=== PATIENT | female | born 1995 | race African-American/Black ===

== ENCOUNTER 2017-03-20 20:51 | Emergency (ER) | payer MEDICAID, OTHER ==
[~2017-03-20] VITALS: Ht 162.6 cm; Wt 54.4 kg
[2017-03-20] MEDS ORDERED: IRON159 MG PO (21:12)
[2017-03-20 21:15] VITALS: BP 115/68
[2017-03-20] MEDS ORDERED: IBUPROFEN600 MG ORAL (22:31)
--- NOTE | 2017-03-20 22:32 | Emergency Room Report ---
History of Present Illness General Chief Complaint: Flu Like Symptoms Source: Patient Present Illness HPI This is a 21-year-old female with no past medical history. She presents with chief complaint of sore throat headache. No nausea no vomiting. No fever or chills. Onset yesterday. Has not anything for it. Worse with swallowing. Allergies: Coded Allergies: No Known Allergies (Unverified , 03/20/17) Patient History Past Medical History: none Past Surgical History: none Pertinent Family History: none Social History: Denies: smoking Last Menstrual Period: 03/15/17 Now: No Immunizations: other Reviewed Nursing Documentation: PMH: Agreed, PSxH: Agreed Review of Systems Eye: Denies: eye pain, blurred vision ENT: Reports: throat pain, Denies: ear pain, nose congestion, throat swelling Respiratory: Denies: cough, shortness of breath Cardiovascular: Denies: chest pain, palpitations Gastrointestinal: Denies: abdominal pain, diarrhea, nausea, vomiting Musculoskeletal: Denies: back pain, joint pain Skin: Denies: rash Neurological: Denies: headache, numbness Endocrine: Denies: increased thirst, increased urine Hematologic/Lymphatic: Denies: easy bruising All Other Systems: negative except mentioned in HPI Physical Exam Vital Signs Date Time Temp Pulse Resp B/P (MAP) Pulse Ox O2 Delivery O2 Flow Rate FiO2 03/20/17 21:08 98.6 98 16 94/53 95 Room Air vitals normal Sp02 EP Interpretation: reviewed, normal General Appearance: well appearing, no apparent distress, alert Head: normocephalic, atraumatic Eyes: bilateral eye PERRL, bilateral eye EOMI ENT: hearing grossly normal, pharyngeal erythema Neck: full range of motion, supple, no meningismus Respiratory: chest non-tender, lungs clear, normal breath sounds Cardiovascular #1: regular rate, rhythm, no murmur Gastrointestinal: normal bowel sounds, non tender, no mass, no organomegaly, no bruit, non-distended Musculoskeletal: back normal, gait/station normal, normal range of motion Psychiatric: mood/affect normal Skin: warm/dry Medical Decision Making Diagnostic Impression: Primary Impression: Pharyngitis, acute Qualified Codes: J02.9 - Acute pharyngitis, unspecified ER Course Patient with a viral pharyngitis. Looks well. No evidence of strep throat. No evidence of peritonsillar abscess, retropharyngeal abscess or Moses angina. Will discharge home with symptom in the treatment. Last Vital Signs Date Time Temp Pulse Resp B/P (MAP) Pulse Ox O2 Delivery O2 Flow Rate FiO2 03/20/17 21:08 98.6 98 16 94/53 95 Room Air Status: unchanged Disposition: HOME, SELF-CARE Condition: Stable Scripts Ibuprofen* (MOTRIN*) 600 Mg Tablet 600 MG ORAL THREE TIMES A DAY, #30 TAB 0 Refills Prov: ZANE SHAW M.D. 03/20/17 Additional Instructions: Rest. Increase fluid. Salt water gargle. Followup your Dr. in 7 days. Return if worse. ZANE SHAW M.D. Mar 20, 2017 22:32
[2017-03-20 22:40] VITALS: BP 122/71
[2017-03-20 22:50] VITALS: BP 122/71
== END 2017-03-20 22:50 | disposition home or self-care (01) ==
LOC: EMR 22:15
DX: R07.0 Pain in throat (principal)
CPT/HCPCS: 99283

== ENCOUNTER 2017-04-16 20:51 | Emergency (ER) | payer OTHER ==
[~2017-04-16] VITALS: Ht 162.6 cm; Wt 54.4 kg
[~2017-04-16 20:51] MED LIST: IBUPROFEN600 MG ORAL; IRON159 MG PO
[2017-04-16] MEDS ORDERED: IBUPROFEN600 MG ORAL (23:57)
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
[2017-04-17] VITALS: BP 108/68
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
== END 2017-04-17 00:05 | disposition home or self-care (01) ==
LOC: EMR 21:51
DX: S39.012A Strain of muscle, fascia and tendon of lower back, initial encounter (principal); V43.02XA Car driver injured in collision with other type car in nontraffic accident, initial encounter; Y92.410 Unspecified street and highway as the place of occurrence of the external cause
CPT/HCPCS: 72020; 81025; 99283